=== PATIENT | male | born 2005 | race Caucasian/White ===

== ENCOUNTER 2025-02-09 17:50 | Emergency (ER) | payer BC ==
[~2025-02-09] VITALS: Ht 177.8 cm; Wt 61.4 kg
[2025-02-09 17:52] VITALS: BP 120/68; TEMP 98.3; O2SAT 100
[2025-02-09] MEDS: FLUORESCEIN OPHTH 1MG STRIP OS ONE (18:35)
[2025-02-09] MEDS: PROPARACAINE 0.5% OPHTH SOL 15ML OS ONE (18:35)
[2025-02-09] MEDS ORDERED: CIPR0.3S37 OS (20:06)
[2025-02-09] MEDS: CIPROFLOXACIN 0.3% OPHTH SOLN 2.5ML OS ONE (20:09)
== END 2025-02-09 20:13 | disposition home or self-care (01) ==
LOC: M ED 17:50
DX: T15.02XA Foreign body in cornea, left eye, initial encounter (principal); Z79.2 Long term (current) use of antibiotics